=== PATIENT | male | born 1980 | race Caucasian/White ===

== ENCOUNTER 2018-06-29 04:48 | Emergency (ER) | payer SELFPAY ==
[~2018-06-29] VITALS: Ht 185.4 cm; Wt 97.5 kg
[2018-06-29 05:00] VITALS: BP 134/63
[2018-06-29] MEDS ORDERED: DEXAMETHASONE 4 MG TABLET PO ONE (05:15)
--- NOTE | 2018-06-29 05:31 | PHYS DOC ---
Past Medical History Past Surgical History: Tonsillectomy Smoking: Greater than 1 pack/day (Cigar) Alcohol Use: None Drug Use: None Social History Father: CHF and cancer - Mother: CHF - Adult General Chief Complaint Chief Complaint: Influenza HPI HPI Patient is a 38 year old male who presents with SOB, cough and fever. He reports having constant productive cough, fever and chill and SOB since last Sat (06/26/2018). Pt also endorses chest and ribs tenderness upon inhalation and cough. He has tried Tylenol which relieves the fever. He has been in contact with his landlord who got the flu lately and he went to the [employer] this weekend. Review of Systems Review of Systems Constitutional: Endorses fever or chills [] Eyes: Denies change in visual acuity, redness, or eye pain [] HENT: Endorses mild nasal congestion. Denies sore throat [] Respiratory: Endorses cough and mild shortness of breath [] Cardiovascular: No additional information not addressed in HPI [] GI: Denies abdominal pain, nausea, vomiting, bloody stools or diarrhea [] : Denies dysuria or hematuria [] Musculoskeletal: Denies back pain or joint pain [] Integument: Denies rash or skin lesions [] Neurologic: Denies headache, focal weakness or sensory changes [] Complete systems were reviewed and found to be within normal limits, except as documented in this note. Current Medications Current Medications Current Medications Medications (Trade) Dose Ordered Sig/Rich Start Time Stop Time Status Last Admin Dose Admin Dexamethasone (Decadron) 10 mg 1X ONCE 06/29/18 05:15 06/29/18 05:16 DC 06/29/18 05:45 10 MG Oseltamivir Phosphate (Tamiflu) 75 mg 1X ONCE 06/29/18 06:00 06/29/18 06:01 UNV Allergies Allergies Allergies Coded Allergies Type Severity Reaction Last Updated Verified No Known Drug Allergies 06/29/18 No NKDA Physical Exam Physical Exam Constitutional: Well developed, well nourished, no acute distress, non-toxic appearance. [] HENT: Normocephalic, atraumatic, bilateral external ears normal, oropharynx moist, no oral exudates, nose normal. [] Eyes: PERRL, EOMI, conjunctiva normal, no discharge. [] Neck: Normal range of motion, no tenderness, supple, no stridor. [] Cardiovascular:Heart rate regular rhythm, no murmur [] Lungs & Thorax: Bilateral breath sounds clear to auscultation [] Abdomen: Bowel sounds normal, soft, no tenderness, no masses, no pulsatile masses. [] Skin: Warm, dry, no erythema, no rash. [] Back: No tenderness, no CVA tenderness. [] Extremities: No tenderness, no cyanosis, no clubbing, ROM intact, no edema. [] Neurologic: Alert and oriented X 3, normal motor function, normal sensory function, no focal deficits noted. [] Psychologic: Affect normal, judgement normal, mood normal. [] Current Patient Data Vital Signs Vital Signs Date Time Temp Pulse Resp B/P (MAP) Pulse Ox O2 Delivery O2 Flow Rate FiO2 06/29/18 05:00 98.7 92 20 134/63 (86) 95 Room Air 98.7 Lab Values Laboratory Tests Test 06/29/18 05:14 Influenza Type A Antigen Positive (NEGATIVE) Influenza Type B Antigen Negative (NEGATIVE) EKG EKG [] Radiology/Procedures Radiology/Procedures 2 view CXR (preliminary interpretation by ED physician): No acute process noted Course & Med Decision Making Course & Med Decision Making Pertinent Labs and Imaging studies reviewed. (See chart for details) [] Dragon Disclaimer Dragon Disclaimer This electronic medical record was generated, in whole or in part, using a voice recognition dictation system. Departure Departure Impression: Primary Impression: Influenza A Disposition: 01 HOME, SELF-CARE Condition: STABLE Patient Instructions: Influenza A (H1N1), Influenza, Adult, [id number] Scripts Guaifenesin/Codeine Phosphate (Coditussin AC Liquid) 473 Ml Liquid 10 ML PO BID PRN for COUGH, #100 LIQUID Prov: EYAL GOMEZ DO 06/29/18 Oseltamivir Phosphate (TAMIFLU) 75 Mg Capsule 1 CAP PO BID for influenza, #10 CAP Prov: EYAL GOMEZ DO 06/29/18 Prednisone (PREDNISONE) 20 Mg Tablet 2 TAB PO DAILY, #8 TAB Start this prescription tomorrow 06/30/18 Prov: EYAL GOMEZ DO 06/29/18 EYAL GOMEZ DO Jun 29, 2018 05:31
[2018-06-29 05:52] LABS: INFLUENZA A PATIENT POSITIVE (NEGATIVE); INFLUENZA B PATIENT NEGATIVE (NEGATIVE)
[2018-06-29] MEDS ORDERED: OSEL75CA PO (05:55)
[2018-06-29] MEDS ORDERED: PRED20TA PO (05:55)
[2018-06-29] MEDS ORDERED: OSELTAMIVIR 75 MG CAPSULE PO ONE (06:00)
[2018-06-29] MEDS ORDERED: GUAI473L75 PO (06:06)
--- NOTE | 2018-06-29 07:50 | RAD ---
CHEST PA LATERAL History: COUGH. Comparison: None. Heart size: Within normal limits. Lynette/mediastinum: Within normal limits Lungs: No focal airspace consolidation. Pleura: No evidence of pleural effusion. Pneumothorax: None visualized Bones: Regional skeleton appears grossly intact. Miscellaneous: None Impression: No acute radiographic findings. Electronically signed by: Lavelle Peters MD (06/29/2018 7:45 AM) [id number]
== END 2018-06-29 06:15 | disposition home or self-care (01) ==
LOC: ER 04:48
DX: J11.1 Influenza due to unidentified influenza virus with other respiratory manifestations (principal); F17.210 Nicotine dependence, cigarettes, uncomplicated; Z90.89 Acquired absence of other organs
CPT/HCPCS: 71046; 87804; 99284; J8540